=== PATIENT | female | born 1945 | race Hispanic/Latino ===

== ENCOUNTER 2016-09-12 10:22 | Outpatient (CLI) | payer MEDICARE ==
--- NOTE | 2016-09-12 12:47 | Ultrasound Report ---
ULTRASOUND ABDOMEN COMPLETE: Technique: Transabdominal ultrasound with color Doppler interrogation. History: Abdominal pain. Findings: The liver is normal size, contour and echotexture. The gallbladder dimensions are within normal limits without intraluminal stone, wall thickening, or pericholecystic fluid. The CBD is normal caliber. The visualized portions of the pancreas including the head and proximal body are within normal limits. The kidneys demonstrate no hydronephrosis or mass. Cortical thickness and echogenicity are within normal limits bilaterally. The spleen and aorta are within normal limits. No aneurysmal dilatation is noted. No ascites. The bladder is unremarkable. IMPRESSION: Unremarkable abdominal ultrasound.
--- NOTE | 2016-09-12 13:13 | Ultrasound Report ---
Pelvic ultrasound: Transabdominal and endovaginal imaging demonstrates an anteverted uterus measuring 4.2 x 4.4 x 8.0 cm. The myometrium is homogeneous. The endometrial thickness is approximately 11.4 mm. No fluid or mass identified. The right ovary is not identified by either approach. The left ovary measures 2 cm and appears echogenically unremarkable. No free fluid. Impression: 1. Unremarkable uterus and left ovary. 2. Nonvisualized right ovary.
== END 2016-09-12 10:23 | disposition home or self-care (01) ==
LOC: US 10:22
PROVIDERS: ATTEND Internal Medicine
DX: R14.0 Abdominal distension (gaseous) (principal)
CPT/HCPCS: 76700; 76830; 76856